=== PATIENT | male | born 1985 | race Asian ===

== ENCOUNTER 2023-07-20 17:50 | Emergency (ER) | payer OTHER, SELFPAY ==
[2023-07-20] VITALS (7 sets, daily range): BP systolic 126–142; BP diastolic 72–99; PULSE 76–122; RESP 18–25; TEMP 36.1–37.1; O2SAT 94–100; BMI 27.6
--- NOTE | 2023-07-20 17:58 | RAD_ITS ---
EXAM: XR LEFT WRIST COMPLETE, 3 OR MORE VIEWS CLINICAL INDICATION: injury TECHNIQUE: Frontal, lateral and oblique views of the left wrist. COMPARISON: No relevant prior studies available. FINDINGS: BONES/JOINTS: Displaced fracture of the ulnar styloid. Comminuted and impacted distal radial fracture with articular extension. There is dorsal displacement of the distal fracture fragment with overlying soft tissue swelling. Preservation of the joint space. No sclerotic or destructive changes observed. SOFT TISSUES: See above. RAD/Wrist min 3 Views IMPRESSION: 1. Displaced fracture of the ulnar styloid. 2. Comminuted and impacted distal radial fracture with articular extension. There is dorsal displacement of the distal fracture fragment with overlying soft tissue swelling. Electronically Signed: Pasha Baugh MD at 18:28 EDT ,
--- NOTE | 2023-07-20 18:00 | EX.ED.UPPERE ---
HPI <OWEN Kirby - Last Filed: 07/20/23 21:45> History of Present Illness Chief Complaint: Upper Extremity Injury Narrative Narrative: Patient presenting today with a left wrist injury that occurred today. He reports that he was playing soccer and fell and landed on an outstretched left hand. He thinks he may have broke his wrist. He denies any other injury. PFSH <OWEN Kirby - Last Filed: 07/20/23 21:45> PFSH Home Medications hydrocodone-acetaminophen 5-325mg 5mg-325mg 1 tab PO Q4H PRN PRN Pain 3 days #12 TABLETS 07/20/23 [Rx Last Taken Unknown] ibuprofen 600 mg tablet 600 mg PO Q6H PRN PRN pain #20 TABLETS 07/20/23 [Rx Last Taken Unknown] Allergy/AdvReac Type Severity Reaction Status Date / Time No Known Allergies Allergy Verified 07/20/23 17:52 Social History Smoking Status: Never smoker ROS <OWEN Kirby - Last Filed: 07/20/23 21:45> ROS ED Constitutional Constitutional ED: Denies chills or fever(s) Cardiovascular Cardiovascular: Denies chest pain Respiratory/Chest Respiratory/Chest: Denies cough or dyspnea Gastrointestinal Gastrointestinal: Denies abdominal pain, nausea or vomiting Musculoskeletal Musculoskeletal: Reports arthralgias; Denies myalgias Integumentary Denies Abrasions Neurologic Neurologic: Denies paresthesias EXAM <OWEN Kirby - Last Filed: 07/20/23 21:45> Physical Exam Const Vital Signs: 07/20/23 17:51 Temperature 97 F L Temperature Source Temporal Pulse Rate 122 H Respiratory Rate 25 H Blood Pressure 140/99 H Blood Pressure Mean 112 Pulse Ox 99 Oxygen Delivery Method Room Air Positive well nourished, well developed and no apparent distress General Appearance ED: well developed HEENT Reports normocephalic and head/scalp atraumatic Mouth ED: Yes moist mucous membranes normal Eyes PERRL and EOMs intact bilaterally Neck full ROM and supple Chest Wall inspection of chest normal Resp normal respiratory effort and clear to auscultation bilaterally Cardio regular rate and regular rhythm GI soft to palpation, non-tender, non-distended and no masses Back/Spine normal ROM and normal to inspection Extremity Extremity Narrative: Limited range of motion to the left wrist, generalized pain to palpation to the left wrist, especially to the radial aspect, dorsally angulated. Left radial pulse 2+, good capillary refill, sensation intact. Neuro oriented x3, CN's II-XII intact bilaterally, moves all extremities, no focal motor deficits and no sensory deficits noted Sensorium / Orientation: awake and alert Psych mental status grossly normal and thought process normal Skin no rashes or lesions noted and no wounds [facility] <OWEN Kirby - Last Filed: 07/20/23 21:45> [facility] Narrative Medical decision making narrative: Patient presenting with a left wrist injury that occurred this evening. Wrist is visibly deformed and highly suspicious for fracture. X-ray will be obtained and he was given ibuprofen for pain. X-ray shows a dorsally displaced distal radius fracture and displaced ulnar styloid fracture. This will require reduction with procedural sedation. After sedation, the wrist was reduced and patient was placed in well-padded splint. Good capillary refill post splint. Postreduction x-ray obtained, minimal improvement in alignment. He has been given additional analgesia here and will be given a prescription for ibuprofen and Percocet. He was given an orthopedic referral. He will likely require surgery. RICE instructions discussed, patient discharged home in stable condition. <Dr. Gil Molina DO - Last Filed: 07/21/23 00:47> [facility] Treatment and Re-Evaluation Narrative: I have personally performed a face to face assessment of the patient and have reviewed the BRITTON Note. I performed a substantive portion of the visit including all aspects of the following. My castano findings include: History: Patient presents with left wrist injury that occurred today. Patient playing soccer when he fell forward. Patient landed on his left wrist. Patient states his pain is worse with any movement. Patient describes his pain as sharp. Patient denies any head injury or loss of consciousness. Patient denies any paresthesias or weakness. Patient denies any other injuries. Exam: Vital signs are stable. Patient was afebrile. Patient was in no acute distress. There is an obvious deformity to the left distal radius. Range of motion was limited in all motions of the left wrist secondary to pain. Radial pulses are equal bilaterally. Sensation was intact to light touch in the radial, median, and ulnar areas. Strength is 5/5 in the radial, median, and ulnar areas. Medical Decision Making: X-rays of the left wrist will be obtained to assess for fracture. IV line was established. X-rays of the left wrist were obtained. There are 3 views. On my independent interpretation, there is a comminuted fracture of the distal radius. There is displacement of the distal fragment dorsally. There is some shortening. Radiologist also interpreted the x-rays and agrees. Patient was advised of the need for procedural sedation. Patient was placed on continuous cardiac and pulse oximeter monitors. Patient was given a total of 100 mg of propofol. After adequate sedation, the wrist was reduced. A well-padded custom made AP splint was applied using 3 inch Ortho-Glass. Neurovascular exam was intact after placement of the splint. Patient tolerated procedure well. Repeat x-rays will be obtained to assess for reduction. Repeat x-rays were obtained. There are 3 views. On my independent interpretation, there is some improvement of the alignment of the fracture fragments. However, there is still some dorsal displacement of the distal fragment. Radiologist also interpreted the x-rays and agrees. Patient was advised of his findings. Patient was advised of the need for probable surgical repair of his wrist fracture. Patient was given referral for orthopedics. Patient was instructed to ice and elevate his wrist. Patient was given a prescription for Percocet. Patient understood and was agreeable with the plan. All questions were answered. Procedures <Dr. Gil Molina, DO - Last Filed: 07/21/23 00:47> Procedural Sedation 1 (Initial Baseline): Consent Signed: Yes Any Problems With Anesthesia: No You/Your family experience fever (hyperthermia) w/anesthesia: No Sedation medication: Propofol Dose: 100 Route: IV Maliampati Score: Class II ASA Classification: II Discharge Plan Triage Chief Complaint: Upper Extremity Injury ED Midlevel Provider: Lianet Cruz ED Provider: Gil Molina Dx/Rx/DC Orders Clinical Impression: Left wrist fracture Instructions: ED Fracture, Wrist, General Prescriptions: New ibuprofen 600 mg tablet 600 mg PO Q6H PRN PRN (Reason: pain) Qty: 20 0RF hydrocodone-acetaminophen 5-325 mg tablet 1 tab PO Q4H PRN PRN (Reason: Pain) 3 Days Qty: 12 0RF Primary Care Provider: Care Physician,No Primary Referrals: Caden Marie DO [Med Staff - Active Staff] - 3-5 Days Care Physician,No Primary [Primary Care Provider] - Activity Restrictions/Additional Instructions: Please follow-up with orthopedics and return for any worsening of your symptoms. Disposition Disposition: Home, Self Care Discharge Date/Time: 07/20/23 22:18
[2023-07-20] MEDS: Ibuprofen 600 MG Tablet PO (18:06)
[2023-07-20] MEDS: Propofol 200 MG/20 ML Vial IV BOLUS (18:42)
--- NOTE | 2023-07-20 20:30 | RAD_ITS ---
EXAM: XR LEFT WRIST COMPLETE, 3 OR MORE VIEWS CLINICAL INDICATION: Injury/Pain TECHNIQUE: Frontal, lateral and oblique views of the left wrist. COMPARISON: Study done earlier today. FINDINGS: BONES/JOINTS: Ulnar styloid fracture. Fiberglas cast in place. Minimal improvement in the alignment of the distal radial fracture post reduction. Preservation of the joint space. No sclerotic or destructive changes observed. SOFT TISSUES: Unremarkable. No soft tissue swelling or gas. No radiopaque foreign body. RAD/Wrist min 3 Views IMPRESSION: 1. Ulnar styloid fracture. 2. Fiberglas cast in place. Minimal improvement in the alignment of the distal radial fracture post reduction. Electronically Signed: Pasha Baugh MD at 20:50 EDT ,
[2023-07-20] MEDS: Oxycodone/Apap 5/325 Tablet PO (20:31)
== END 2023-07-20 22:18 | disposition home or self-care (01) ==
PROVIDERS: Emergency Provider Emergency Medicine; Visit Provider Emergency Medicine
DX: S52.502A Unspecified fracture of the lower end of left radius, initial encounter for closed fracture (principal); S52.612A Displaced fracture of left ulna styloid process, initial encounter for closed fracture; W18.30XA Fall on same level, unspecified, initial encounter; Y93.66 Activity, soccer
CPT/HCPCS: 25605; 29125; 73110; 99285; J7030

== ENCOUNTER 2023-07-31 08:02 | Day surgery (SDC) | payer OTHER, SELFPAY ==
[2023-07-31] VITALS (7 sets, daily range): BP systolic 128–152; BP diastolic 75–102; PULSE 77–102; RESP 16–18; TEMP 36.1–36.3; O2SAT 95–98; BMI 27.1
[2023-07-31] MEDS: Lactated Ringers 1,000 ML 15 ML IV (08:26)
[2023-07-31] MEDS: Cefazolin 2 GM in 0.9% Normal Saline (100mL Bag) 100 ML IV (10:14)
--- NOTE | 2023-07-31 10:15 | RAD_ITS ---
PROCEDURE: Fluoroscopic guidance for reduction of the distal radial fracture. DATE OF EXAMINATION: July 31, 2023. INDICATION: Male, 37 years old. Right radial fracture. FLUOROSCOPY TIME (if supplied): (61.5 seconds) minutes/seconds. 1.23 mGy. 2 images were submitted. RAD/Wrist 2 Views IMPRESSION: Intraoperative fluoroscopic services provided for open reduction internal fixation of the distal radial fracture with screw and plate fixation device. Avulsion fracture of the ulnar styloid. Electronically Signed: David Lopez MD at 13:03 EDT ,
--- NOTE | 2023-07-31 11:54 | PCM.OPRPT ---
Report of Operation Date of Procedure: 07/31/23 Description of Surgical Findings:: Preoperative diagnosis: Left intra-articular distal radius fracture Postoperative diagnosis: Left intra-articular distal radius fracture Procedure: Open reduction internal fixation left distal radius fracture, 3 fragments Surgeon: Caden Marie DO sales service assistant: Jeannie Stewart PA-C Anesthesia: General endotracheal with axillary block Bead Supervisor: Sanjiv Perez CRNA Complications: None Drains: None Estimated blood loss: 10 cc Urinary output: None recorded IV fluids: 1200 cc crystalloid Specimens: None Surgical implants: Arthrex volar distal radius locking plate, 3-hole Surgical indications: This is a 37-year-old male who sustained a fall on outstretched left hand on 07/20/2023 while playing soccer. He was seen in the [facility] emergency department and a closed reduction was performed by the emergency room physician. He was neurovascularly intact. He followed up in my office. X-rays revealed a intra-articular displaced distal radius fracture with improved but in adequate alignment following closed reduction. I recommend surgical intervention in the form of left distal radius open reduction internal fixation. I reviewed the risks, benefits, terms the procedure with the patient at length. Risks included but were not limited to bleeding, infection, loss of life or limb, need for additional surgery, persistent pain, nonhealing bone or wounds, posttraumatic arthritis, symptomatic hardware, CRPS, stiffness, neurovascular injury, DVT or PE. Description of procedure: Patient was seen in preoperative holding area. He was identified by name, medical record number, date of . The operative extremity was marked with a surgical marker. We confirmed informed consent with the patient and all questions were answered to his satisfaction. Axillary block was then administered by the anesthesia staff prior to the procedure. At time of his procedure, patient was brought to the operative suite and positioned supine on a standard operating table. All bony prominences were well-padded. General anesthesia was administered. After adequate anesthesia, a well-padded pneumatic tourniquet was applied to the upper arm of the operative extremity. We then spun the bed 90 degrees. We prepped and draped the operative extremity in a normal, sterile orthopedic fashion. We then performed a timeout with all parties in attendance in agreement the side, site, and operation be performed. No concerns were voiced and we elected to proceed. 2 g Ancef was administered for antibiotic prophylaxis prior to the incision by anesthesia staff. I first exsanguinated the operative extremity with an Esmarch bandage. Tourniquet was inflated to 250 mmHg, which remained up for approximately 40 minutes. Esmarch was removed. I planned a standard FCR approach over the flexor carpi radialis tendon along the volar wrist. Skin was sharply incised with a 15 blade scalpel down to the level of the tendon sheath. The FCR tendon sheath was identified and split longitudinally in line with the incision. I then retracted the FCR tendon ulnarly, split the floor of the tendon sheath in line with the incision. The flexor pollicis longus muscle belly was then encountered and retracted ulnarly. The pronator quadratus was torn during time of injury. The shaft portion of the fracture was easily encountered due to the persistent dorsal displacement of the metaphysis. I performed a brachioradialis tenotomy to allow for mobilization of the radial column. Fracture hematoma was encountered and debrided with a rongeur. The fracture was irrigated. Reduction was performed with longitudinal traction and the assistance of a Hohmann retractor to the lever the distal segment. The metaphyseal fragment keyed in very nicely. Length was held with percutaneous K wires through the radial styloid. There was a coronal split within the fracture which was reasonably well reduced at this point. I selected a standard width volar locking plate. This was positioned and held in place provisionally with K wires. I compressed the plate to bone with a cortical screw in the oblong hole of the shaft portion of the plate. I then compressed the distal segment and achieved excellent compression within the coronal split with a cortical screw in the distal cluster which I did place bicortically. This was later exchanged for a unicortical locking screw. There is a separate dorsal ulnar corner fragment that was captured with a unicortical Kruelock screw that allowed for interfragmentary compression. Fluoroscopic images were obtained at this point demonstrating anatomically reduced articular surface. Minimal displacement was noted in the areas of comminution most notable at the base of the radial styloid. I then filled the distal cluster with unicortical locking screws. 2 unicortical locking screws were placed within the radial styloid portion of the plate. An additional cortical screw was placed in the most proximal shaft screw hole and a unicortical locking screw was placed in the distalmost shaft screw hole. Final fluoroscopic images were obtained. The wrist was stressed and was stable. Wound was copiously irrigated with normal saline solution. Final tightening was performed of the locking screws with the torque limiting screwdriver. Tourniquet was deflated. There was excellent return of perfusion to the hand. Bleeding was minimal and controlled with bipolar cautery. The pronator quadratus was then laid over top of the plate. Dermis was reapproximated buried 3-0 Vicryl suture. Skin was finally reapproximated the subcuticular 4-0 Monocryl and skin glue. Bulky sterile compression dressing was applied as well as a well-padded volar short arm fiberglass splint. Patient was then awoken the operative suite and safely extubated. He was transferred to his gurney and subsequent to PACU in stable condition. Need for skilled facilities maintenance assistant: Jeannie Stewart PA-C was critical to the outcome of the case. During the course of the procedure the physician facilities maintenance assistant played a vital role. Her intimate knowledge of my steps in the procedure aided in safe and expedient completion of the procedure. The PA played a vital role in positioning particularly in obtaining the appropriate positioning. The PA was also vital in the retraction of soft tissues during the exposure and protecting vital structures. The PA was also vital and obtaining fracture reduction and assisting with hardware placement. She also played a vital role in closure and splint application with my direct supervision. Post Operative Plan: Weightbearing: Nonweightbearing operative extremity Antibiotics: 2 g Ancef x 1 dose preoperatively DVT Prophylaxis: Twice daily aspirin 81 mg x 2 weeks, early mobilization Stanley: None Dressing: Maintain splint, keep it clean dry and intact until follow-up X-Rays: 2 weeks postop in the office out of splint Pain Medication: Oxycodone prescription provided as an outpatient. Tylenol and ibuprofen encouraged. Follow-up: 2 weeks post-operatively in the office
[2023-07-31] MEDS: Ketorolac 30 MG/ML Syringe IV (12:09)
== END 2023-07-31 12:55 | disposition home or self-care (01) ==
LOC: SDC 08:04 → AC 08:06
PROVIDERS: Referring Provider Student in an Organized Health Care Education/Training Program; Visit Provider Student in an Organized Health Care Education/Training Program
PROC: (CPT 25609; principal; 2023-07-31 09:30)
DX: S52.572A Other intraarticular fracture of lower end of left radius, initial encounter for closed fracture (principal); I10 Essential (primary) hypertension; S52.612A Displaced fracture of left ulna styloid process, initial encounter for closed fracture; Y93.66 Activity, soccer; W19.XXXA Unspecified fall, initial encounter; K76.0 Fatty (change of) liver, not elsewhere classified; Z79.899 Other long term (current) drug therapy
CPT/HCPCS: 25609; 01830; 64418; 73100; 76000; C1713; J7120; J2405